=== PATIENT | male | born 1950 | race American Indian/Alaskan Native ===

== ENCOUNTER 2016-10-12 20:54 | Emergency (ER) | payer MEDICARE ==
[2016-10-12 22:24] LABS: Anion Gap 19 mmol/L; Blood Urea Nitrogen 15 mg/dL (9-20); Calcium 9.1 mg/dL (8.4-10.2); Carbon Dioxide 26 mmol/L (22-30); Chloride 101.4 mmol/L (98-107); Glucose 100 mg/dL (75-100); Potassium 4.2 mmol/L (3.6-5.0); Sodium 142 mmol/L (137-145)
[2016-10-12] MEDS ORDERED: CATAPRES PO ONE (22:27)
--- NOTE | 2016-10-12 22:33 | Emergency Department Report ---
ED Male HPI - General Chief complaint: Urogenital-Male Stated complaint: PAIN PRIVATE AREA Time Seen by Provider: 10/12/16 21:40 Source: patient Mode of arrival: Ambulatory Limitations: No Limitations - History of Present Illness Initial comments: Patient here reports that he was having intercourse with his girlfriend and during intercourse the condom came off and since then he's been having occasional burning to his penis. Denies any pain with urination. Denies any penile discharge. Denies he is in medication for erectile dysfunction. Denies any fever or chills, denies any nausea or vomiting. Denies any abdominal pain or back pain. Denies any rash or lesions to his penis. Pain to penis area intermittent and is 4 out of 10 and burning. Patient said he asked his girlfriend if she has any disease and she said no she just had a yeast infection. Patient is here requesting to be treated for STDs. Patient also with elevated blood pressure of 194/112 and he said his doctor give him medication for blood pressure but he can't remember what it is. He said he does not take the medication. Denies any headache, dizziness, blurred vision, chest pain or shortness of breath. MD Complaint: other (burning in penis and requested STD check) Onset/Timin -: days(s) Location: penis Radiation: none Severity scale (0 -10): 4 Quality: burning Consistency: intermittent Improves with: none Worsens with: other (movement) denies: discharge, swelling, mass, rash, urinary retention, blood in urine, dysuria, fever, nausea/vomiting, incontinence - Related Data Sexually active: Yes Allergies Allergy/AdvReac Type Severity Reaction Status Date / Time No Known Allergies Allergy Unverified 10/12/16 21:32 ED Review of Systems ROS: Stated complaint: PAIN PRIVATE AREA Other details as noted in HPI Comment: All other systems reviewed and negative Constitutional: denies: chills, fever Eyes: denies: vision change ENT: denies: congestion Respiratory: no symptoms reported Cardiovascular: denies: chest pain, palpitations, edema, syncope Gastrointestinal: denies: abdominal pain, nausea, vomiting, diarrhea, constipation Genitourinary: other (patient concerns for STD and complains penis is burning). denies: urgency, dysuria, frequency, hematuria, discharge, testicular pain, testicular mass Musculoskeletal: denies: back pain, joint swelling, arthralgia, myalgia Skin: denies: rash, lesions Neurological: denies: headache, weakness, numbness, paresthesias, confusion, abnormal gait, vertigo ED Past Medical Hx - Past Medical History Previous Medical History?: Yes Hx Hypertension: Yes - Surgical History Past Surgical History?: No - Family History Family history: hypertension - Social History Smoking Status: Never Smoker Substance Use Type: None ED Physical Exam - General Limitations: No Limitations General appearance: alert, in no apparent distress - Head Head exam: Present: atraumatic, normocephalic, normal inspection - Eye Eye exam: Present: PERRL, EOMI. Absent: scleral icterus, conjunctival injection , nystagmus, periorbital swelling, periorbital tenderness Pupils: Present: normal accommodation - ENT ENT exam: Present: normal exam, normal orophraynx, mucous membranes moist. Absent: TM's normal bilaterally, normal external ear exam - Neck Neck exam: Present: normal inspection, full ROM. Absent: tenderness, meningismus, lymphadenopathy - Respiratory Respiratory exam: Present: normal lung sounds bilaterally. Absent: respiratory distress, wheezes, rales, rhonchi, stridor, chest wall tenderness - Cardiovascular Cardiovascular Exam: Present: regular rate, normal rhythm, normal heart sounds, other (blood pressure 194/112) - GI/Abdominal GI/Abdominal exam: Present: soft, normal bowel sounds. Absent: guarding, rebound, rigid, organomegaly, mass, bruit, pulsatile mass, hernia - exam: Present: normal inspection, circumcision. Absent: testicular tenderness, urethral discharge, scrotal swelling, vertical testicular lie External exam: Present: normal external exam, other (no penile bruising or erythema to skin.). Absent: erythema, swelling, lesions, lacerations, ecchymosis, bleeding - Extremities Exam Extremities exam: Present: normal inspection, full ROM, normal capillary refill. Absent: tenderness, pedal edema, joint swelling, calf tenderness - Back Exam Back exam: Present: normal inspection, full ROM. Absent: tenderness, CVA tenderness (R), CVA tenderness (L), muscle spasm, paraspinal tenderness, vertebral tenderness, rash noted - Neurological Exam Neurological exam: Present: alert, oriented X3, normal gait, other (no focal neurological deficit). Absent: motor sensory deficit, reflexes normal - Psychiatric Psychiatric exam: Present: normal affect, normal mood - Skin Skin exam: Present: warm, dry, intact, normal color. Absent: rash ED Course Vital Signs 10/12/16 10/12/16 21:25 23:02 Temperature 98.3 F Pulse Rate 72 Respiratory 18 Rate Blood Pressure 194/112 Blood Pressure 160/100 [Left] O2 Sat by Pulse 98 Oximetry - Reevaluation(s) Reevaluation #1: 10/12/16 22:42 Patient treated empirically for STD. Rocephin 250 mg IM, Flagyl 2 g by mouth and azithromycin 1 g by mouth without any adverse reaction. History of given clonidine 0.2 mg by mouth for elevated blood pressure and will recheck. Reevaluation #2: 10/12/16 23:14 Patient blood pressure is 160/100 after clonidine. ED Medical Decision Making - Lab Data Result diagrams: 10/12/16 21:44 10/12/16 21:44 Lab Results 10/12/16 10/12/16 10/12/16 Range/Units 21:44 21:44 21:45 WBC 4.7 (4.5-11.0) K/mm3 RBC 5.92 H (3.65-5.03) M/mm3 Hgb 13.3 (11.8-15.2) gm/dl Hct 42.6 (35.5-45.6) % MCV 72 L (84-94) fl MCH 22 L (28-32) pg MCHC 31 L (32-34) % RDW 16.7 H (13.2-15.2) % Plt Count 223 (140-440) K/mm3 Lymph % (Auto) 41.4 H (13.4-35.0) % [place] % (Auto) 10.4 H (0.0-7.3) % Eos % (Auto) 1.9 (0.0-4.3) % Baso % (Auto) 1.2 (0.0-1.8) % Lymph # 1.9 (1.2-5.4) K/mm3 [place] # 0.5 (0.0-0.8) K/mm3 Eos # 0.1 (0.0-0.4) K/mm3 Baso # 0.1 (0.0-0.1) K/mm3 Seg Neutrophils % 45.1 (40.0-70.0) % Seg Neutrophils # 2.1 (1.8-7.7) K/mm3 Sodium 142 (137-145) mmol/L Potassium 4.2 (3.6-5.0) mmol/L Chloride 101.4 (98-107) mmol/L Carbon Dioxide 26 (22-30) mmol/L Anion Gap 19 mmol/L BUN 15 (9-20) mg/dL Creatinine 1.2 (0.8-1.5) mg/dL Estimated GFR > 60 ml/min BUN/Creatinine Ratio 12.50 % Glucose 100 (75-100) mg/dL Calcium 9.1 (8.4-10.2) mg/dL Urine Color Straw (Yellow) Urine Turbidity Clear (Clear) Urine pH 6.0 (5.0-7.0) Ur Specific [place] 1.011 (1.003-1.030) Urine Protein <15 mg/dl (Negative) mg/dL Urine Glucose (UA) Neg (Negative) mg/dL Urine Ketones Neg (Negative) mg/dL Urine Blood Neg (Negative) Urine Nitrite Neg (Negative) Urine Bilirubin Neg (Negative) Urine Urobilinogen < 2.0 (<2.0) mg/dL Ur Leukocyte Esterase Neg (Negative) Urine WBC (Auto) 1.0 (0.0-6.0) /HPF Urine RBC (Auto) 4.0 (0.0-6.0) /HPF - Medical Decision Making ED course: Patient here report that he has burning at the tip of his penis and requested treatment for STD because condom came off when he was having sex with his girlfriend and since then he's been feeling funny at his penis. Physical findings related exam is normal without any rash lesion, penile discharge or irritation. Patient with elevated blood pressure with a history of high blood pressure and he is noncompliant with his blood pressure medication. Patient asymptomatic with elevated blood pressure. Patient was given Rocephin 250 mg IM , Flagyl 2 g by mouth and azithromycin 1 g by mouth to cover gonorrhea, chlamydia and Trichomonas. He Was given clonidine 0.2 mg for elevated blood pressure. Patient instructed that he needs to refrain from drinking alcohol for the next 7 days as medication that was given to treat STD could have a negative reaction with alcohol. I instructed him to go to [place] [facility] or his primary care physician to have STD check after 7 days. Discussed with him that he needs to practice safe sex and that he needs to refrain from having sex for the next 2 weeks. Patient voiced understanding of instructions and that he will need to keep her blood pressure log to monitor his blood pressure and also to take his blood pressure as prescribed by his primary care physician. Blood pressure is 160/100 after clonidine. Diagnostic/labs: BMP within normal limits, CBC with mild abnormalities but no signs of bacterial infection. Urinalysis normal values Assessment/plan 1. Penile burning 2. Concerns for STD in male without diagnosis 3. Elevated blood pressure with history of hypertension and patient is noncompliant. Patient to follow-up with her primary care doctor and keep a record of his blood pressure and take Primary care doctor visit. Patient also to take his blood pressure medication as prescribed by his primary care doctor. Patient instructed to practice safe sex and to have STD check at health department or his primary care doctor in 7 days. Ice and does have a primary care physician to follow up with Critical care attestation.: If time is entered above; I have spent that time in minutes in the direct care of this critically ill patient, excluding procedure time. ED Disposition Clinical Impression: Concern about STD in male without diagnosis, Sexually transmitted disease (STD) , Elevated systolic blood pressure reading with diagnosis of hypertension, Noncompliance with medications Disposition: DC-01 TO HOME OR SELFCARE Is pt being admited?: No Does the pt Need Aspirin: No Condition: Stable Instructions: Safe Sex (ED), Hypertension (ED) Additional Instructions: Please practice safe sex Patient states her blood pressure daily and keep a log and schedule appointment with Primary Care for evaluation. Please take her blood pressure medication as prescribed by your primary care doctor If you did not take her blood pressure medication, your blood pressure could rise to a level where you can experience kidney failure and ended up on dialysis , stroke and ended up that or not being able to walk and/or heart attack leading to . Please do not have sex for the next 2 weeks Follow-up with your primary care doctor or the [facility] for STD check in 7 days Please do not drink FOR THE NEXT WEEK MEDICATION GIVEN FOR STD CAN CAUSE NEGATIVE REACTION WITH ALCOHOL Referrals: PRIMARY CARE, [Primary Care Provider] - 2-3 Days [facility] [Outside] - 7-10 days Forms: Work/School Release Form(ED)
[2016-10-12] MEDS ORDERED: ZITHROMAX PO ONE (22:34)
[2016-10-12] MEDS ORDERED: XYLOCAINE 1% MPF 5 mL INFILTRATI ONE (22:34)
[2016-10-12] MEDS ORDERED: ROCEPHIN IM ONE (22:34)
[2016-10-12] MEDS ORDERED: FLAGYL PO ONE (22:34)
[2016-10-12 22:43] LABS: Bilirubin,Urine NEG (Negative); Blood,Urine NEG (Negative); Ketones,Urine NEG (Negative); Leukocyte Esterase,Urine NEG (Negative); Nitrite,Urine NEG (Negative); Protein,Urine <15 mg/dL mg/dL (Negative); Urobilinogen,Urine < 2.0 mg/dL (<2.0)
[2016-10-12 22:59] LABS: Basophils % (Auto) 1.2 % (0.0-1.8); Eosinophils % (Auto) 1.9 % (0.0-4.3); Hematocrit 42.6 % (35.5-45.6); Hemoglobin 13.3 gm/dl (11.8-15.2); Mean Corpuscular HGB Conc 31 % (32-34); Mean Corpuscular Volume 72 fl (84-94); Platelet Count 223 K/mm3 (140-440); Red Blood Count 5.92 M/mm3 (3.65-5.03); Red Cell Distribution Width 16.7 % (13.2-15.2); White Blood Count 4.7 K/mm3 (4.5-11.0)
[2016-10-12 23:03] VITALS: BP 160/100
[2016-10-12 23:09] LABS: Mean Corpuscular Hemoglobin 22 pg (28-32)
== END 2016-10-12 23:26 | disposition home or self-care (01) ==
LOC: ED 20:54
DX: A64 Unspecified sexually transmitted disease (principal); I10 Essential (primary) hypertension; Z91.14 Patient's other noncompliance with medication regimen
CPT/HCPCS: 36415; 80048; 81001; 85025; 96372; 99283; J0696

== ENCOUNTER 2016-10-17 00:03 | Emergency (ER) | payer MEDICARE ==
[2016-10-17 01:39] LABS: Bilirubin,Urine NEG (Negative); Blood,Urine NEG (Negative); Ketones,Urine NEG (Negative); Leukocyte Esterase,Urine NEG (Negative); Mucus,Urine FEW /HPF; Nitrite,Urine NEG (Negative); Protein,Urine <15 mg/dL mg/dL (Negative); RBC,Urine < 1.0 /HPF (0.0-6.0); Urobilinogen,Urine < 2.0 mg/dL (<2.0)
--- NOTE | 2016-10-17 03:54 | Emergency Department Report ---
ED Male HPI - General Chief complaint: Urogenital-Male Stated complaint: PRIVATE AREA Time Seen by Provider: 10/17/16 03:38 Source: patient Mode of arrival: Ambulatory Limitations: No Limitations - History of Present Illness Initial comments: This is a 65-year-old male nontoxic, well nourished in appearance, no acute signs of distress that the ED complaining of penile discharge and burning sensation upon urination. Patient stated he was here 5 days ago and was treated with Rocephin and azithromycin but supposed had not been relieved. He stated his girlfriend has been diagnosed with Trichomonas after medical treatment in the ED. Patient denies missing any antibiotics at discharge. Patient denies any testicular pain, testicular swelling, chest pain, fever, chills, shortness of breath, nausea, vomiting, penile pain, numbness or tingling. Patient denies any allergies or past medical history. MD Complaint: penile discharge -: Gradual, days(s) (5) Location: penis Radiation: none Quality: burning (burning) Consistency: constant Improves with: none Worsens with: urination discharge (clear). denies: swelling, mass, rash, urinary retention, blood in urine, dysuria, fever, nausea/vomiting, incontinence - Related Data Previous Rx's Medication Instructions Recorded Last Taken Type metroNIDAZOLE [Flagyl] 500 mg PO Q12HR #14 tab 10/17/16 Unknown Rx Allergies Allergy/AdvReac Type Severity Reaction Status Date / Time No Known Allergies Allergy Unverified 10/12/16 21:32 ED Review of Systems ROS: Stated complaint: PRIVATE AREA Other details as noted in HPI Constitutional: denies: chills, fever Eyes: denies: eye pain, eye discharge, vision change ENT: denies: ear pain, throat pain Respiratory: denies: cough, shortness of breath, wheezing Cardiovascular: denies: chest pain, palpitations Endocrine: no symptoms reported Gastrointestinal: denies: abdominal pain, nausea, diarrhea Genitourinary: denies: urgency, dysuria Musculoskeletal: denies: back pain, joint swelling, arthralgia Skin: denies: rash, lesions Neurological: denies: headache, weakness, paresthesias Psychiatric: denies: anxiety, depression Hematological/Lymphatic: denies: easy bleeding, easy bruising ED Past Medical Hx - Past Medical History Previous Medical History?: Yes Hx Hypertension: Yes - Surgical History Past Surgical History?: No - Social History Smoking Status: Never Smoker Substance Use Type: None - Medications Home Medications: Home Medications Medication Instructions Recorded Confirmed Last Taken Type metroNIDAZOLE [Flagyl] 500 mg PO Q12HR #14 tab 10/17/16 Unknown Rx ED Physical Exam - General Limitations: No Limitations General appearance: alert, in no apparent distress - Head Head exam: Present: atraumatic, normocephalic, normal inspection - Eye Eye exam: Present: normal appearance, PERRL, EOMI. Absent: scleral icterus, conjunctival injection, nystagmus, periorbital swelling, periorbital tenderness Pupils: Present: normal accommodation - ENT ENT exam: Present: normal exam, normal orophraynx, mucous membranes moist, TM's normal bilaterally, normal external ear exam - Neck Neck exam: Present: normal inspection, full ROM. Absent: tenderness, meningismus, lymphadenopathy, thyromegaly - Respiratory Respiratory exam: Present: normal lung sounds bilaterally. Absent: respiratory distress, wheezes, rales, rhonchi, stridor, chest wall tenderness, accessory muscle use, decreased breath sounds, prolonged expiratory - Cardiovascular Cardiovascular Exam: Present: regular rate, normal rhythm, normal heart sounds. Absent: bradycardia, tachycardia, irregular rhythm, systolic murmur, diastolic murmur, rubs, gallop - GI/Abdominal GI/Abdominal exam: Present: soft, normal bowel sounds. Absent: distended, tenderness, guarding, rebound, rigid - Rectal Rectal exam: Present: deferred - exam: Present: normal inspection. Absent: testicular tenderness, urethral discharge, scrotal swelling, vertical testicular lie External exam: Present: normal external exam. Absent: erythema, swelling, lesions, lacerations, ecchymosis, bleeding - Extremities Exam Extremities exam: Present: normal inspection, full ROM, normal capillary refill. Absent: tenderness, pedal edema, joint swelling, calf tenderness - Back Exam Back exam: Present: normal inspection, full ROM. Absent: tenderness, CVA tenderness (R), CVA tenderness (L), muscle spasm, paraspinal tenderness, vertebral tenderness, rash noted - Neurological Exam Neurological exam: Present: alert, oriented X3, CN II-XII intact, normal gait, reflexes normal - Psychiatric Psychiatric exam: Present: normal affect, normal mood - Skin Skin exam: Present: warm, dry, intact, normal color. Absent: rash ED Course Vital Signs 10/17/16 00:24 Temperature 97.8 F Pulse Rate 86 Respiratory 20 Rate Blood Pressure 161/107 O2 Sat by Pulse 99 Oximetry - Reevaluation(s) Reevaluation #1: 10/17/16 03:53 Patient is speaking full sentences with no signs of distress. ED Medical Decision Making - Medical Decision Making 65-year-old male that presents with burning sensation urination and penile discharge. His girlfriend diagnosed with Trichomonas and elected to be treated empirically. Patient was here 5 days ago received Rocephin and azithromycin with no relief. Critical care attestation.: If time is entered above; I have spent that time in minutes in the direct care of this critically ill patient, excluding procedure time. ED Disposition Clinical Impression: Penile discharge, Burning with urination Disposition: DC-01 TO HOME OR SELFCARE Is pt being admited?: No Does the pt Need Aspirin: No Condition: Stable Instructions: Metronidazole (By mouth) Additional Instructions: Follow-up with a primary care doctor in 3-5 days or if symptoms worsen and continue presented to emergency room as soon as possible. Take full course of antibiotics that was prescribed. Do not drink any alcohol while taking Flagyl. Prescriptions: metroNIDAZOLE [Flagyl] 500 mg PO Q12HR #14 tab Referrals: PRIMARY CAREMD [Primary Care Provider] - 3-5 Days KLEBER AYALA MD [Staff Physician] - 3-5 Days [facility] [Outside] - 3-5 Days [facility] [Outside] - 3-5 Days Forms: Work/School Release Form(ED)
[2016-10-17 04:28] VITALS: BP 168/94
== END 2016-10-17 04:29 | disposition home or self-care (01) ==
LOC: ED 00:03
DX: R36.9 Urethral discharge, unspecified (principal); R30.0 Dysuria; I10 Essential (primary) hypertension
CPT/HCPCS: 81001; 99283